=== PATIENT | male | born 1985 | race African-American/Black ===

== ENCOUNTER 2017-11-22 15:59 | Emergency (ER) | payer OTHER ==
[2017-11-22] MEDS: IBUPROFEN 800 MG TAB PO (16:40)
[2017-11-22] MEDS: ACETAMINOPHEN 500 MG TAB PO (16:40)
[2017-11-22] MEDS: DEXAMETHASONE 10 MG/ML 1 ML INJ IM (16:47)
[2017-11-22] MEDS: CEFTRIAXONE 1 GM INJ IM (16:47)
== END 2017-11-22 17:05 | disposition home or self-care (01) ==
LOC: FTE 15:59
DX: J03.90 Acute tonsillitis, unspecified (principal); H66.93 Otitis media, unspecified, bilateral; H60.93 Unspecified otitis externa, bilateral
CPT/HCPCS: 96372; 99284-25

== ENCOUNTER 2018-12-18 01:29 | Observation (INO) | payer OTHER ==
[2018-12-18 02:30] LABS: ADD MAN DIFF? NO
[2018-12-18 02:33] LABS: WHITE BLOOD COUNT 7.3 10^3/ul (4.8-10.8)
[2018-12-18 02:33] LABS: BASOPHILS % 0.4 % (0.0-2.0); EOSINOPHILS # 0.2 10^3/ul (0.0-0.5); EOSINOPHILS % 2.1 % (0.0-7.0); HEMATOCRIT 46.6 % (42.0-52.0); LYMPHOCYTES % 27.5 % (15.0-51.0); MEAN CORPUSCULAR HEMOGLOBIN 30.5 pg (29.0-33.0); MEAN CORPUSCULAR HGB CONC 34.3 g/dl (32.0-37.0); MEAN CORPUSCULAR VOLUME 88.8 fl (82.0-101.0); MEAN PLATELET VOLUME 9.7 fl (7.4-10.4); MONOCYTE # 0.6 10^3/ul (0.3-0.9); MONOCYTES % 8.4 % (0.0-11.0); NEUTROPHIL # 4.5 10^3/ul (1.6-7.5); NEUTROPHILS % 61.3 % (39.0-77.0); PLATELET COUNT 311 10^3/UL (140-415); RED BLOOD COUNT 5.25 10^6/ul (4.70-6.10); RED CELL DISTRIBUTION WIDTH 12.8 % (11.5-14.5)
[2018-12-18 02:39] LABS: INR 0.89; PARTIAL THROMBOPLASTIN TIME 28.1 Sec (23.0-35.0); PROTIME 12.1 Sec (11.9-14.9); PT RATIO 0.9
[2018-12-18] MEDS: morphine 4 MG/ML VIAL IV (02:40)
[2018-12-18] MEDS: ONDANSETRON 4 MG INJ IV (02:43)
[2018-12-18 02:56] LABS: ALANINE AMINOTRANSFERASE 41 IU/L (13-69); ALBUMIN 4.7 g/dl (3.3-4.9); ALKALINE PHOSPHATASE 74 IU/L (42-121); ANION GAP 13 (5-13); ASPARTATE AMINO TRANSFERASE 39 IU/L (15-46); BILIRUBIN,INDIRECT 0.7 mg/dl (0-1.1); BILIRUBIN,TOTAL 0.7 mg/dl (0.2-1.3); BLOOD UREA NITROGEN 19 mg/dl (7-20); CALCIUM 9.7 mg/dl (8.4-10.2); CARBON DIOXIDE 25 mmol/L (21-31); CHLORIDE 103 mmol/L (97-110); CREATININE 0.93 mg/dl (0.61-1.24); Estimated GFR > 60 mL/min (>60); GLUCOSE 105 mg/dl (70-220); POTASSIUM 4.1 mmol/L (3.5-5.1); SODIUM 141 mmol/L (135-144); TOTAL PROTEIN 8.6 g/dl (6.1-8.1)
[2018-12-18 05:20] LABS: TROPONIN-I < 0.012 ng/ml (0.000-0.120)
[2018-12-18] MEDS ORDERED: ACETAMINOPHEN 325 MG TAB PO ×2 (06:00→06:30)
[2018-12-18] MEDS ORDERED: ONDANSETRON 4 MG INJ IV ×2 (06:00→06:30)
[2018-12-18] MEDS: ASPIRIN 81 MG TAB PO (06:05)
[2018-12-18] MEDS: SOD CHLORIDE 0.9% 100 ML (06:08)
[2018-12-18] MEDS: IOHEXOL 300MG/ML 150 ML BTL (06:08)
[2018-12-18] MEDS ORDERED: HYDROCODONE/APAP (5/325) TAB PO (06:30)
[2018-12-18] MEDS ORDERED: LORAZEPAM 2 MG INJ IV (06:30)
[2018-12-18] MEDS ORDERED: hydrALAzine 20 MG INJ IV (06:30)
[2018-12-18] MEDS ORDERED: NITROGLYCERIN (SL) 0.4 MG TAB SL (06:30)
[2018-12-18] MEDS ORDERED: DOCUSATE SODIUM 100 MG CAP PO (06:30)
[2018-12-18] MEDS ORDERED: ALBUTEROL/IPRATROPIUM (NEB) 3 ML AMP HHN (06:30)
[2018-12-18] MEDS ORDERED: MAGNESIUM HYDROXIDE 30ML CUP PO (06:30)
[2018-12-18] MEDS ORDERED: morphine 2 MG INJ IV (06:30)
[2018-12-18] MEDS ORDERED: NACL 0.9% 3 ML SYG IV (06:30)
[2018-12-18 06:41] LABS: FREE T4 (FREE THYROXINE) 0.78 ng/dl (0.79-2.35)
[2018-12-18] MEDS: METOPROLOL (XL) 25 MG TAB PO (08:41)
[2018-12-18] MEDS: ASPIRIN (EC) 325 MG TAB PO (08:41)
[2018-12-18] MEDS: HEPARIN 5,000 UNIT/1 ML VIAL SC (08:43)
[2018-12-18 09:48] LABS: CREATINE KINASE 498 IU/L (23-200)
[2018-12-18 09:58] LABS: CK INDEX 0.6; CK-MB 2.76 ng/ml (0.0-2.4); TROPONIN-I < 0.012 ng/ml (0.000-0.120)
[2018-12-18] MEDS: SOD CHLORIDE 0.45% 1,000 ML IV (10:15)
[2018-12-18] MEDS ORDERED: IOHEXOL 14.3 MG(I)/ML (ADULT) BTL PO (10:30)
[2018-12-18] MEDS: METOCLOPRAMIDE 10 MG INJ IV (11:32)
[2018-12-18] MEDS: PANTOPRAZOLE (EC) 40 MG TAB PO (11:32)
== END 2018-12-18 12:00 | disposition left against medical advice (07) ==
LOC: E/R 01:29 → 6WM 05:56
DX: R07.9 Chest pain, unspecified (principal); R42 Dizziness and giddiness; R94.31 Abnormal electrocardiogram [ECG] [EKG]
CPT/HCPCS: 71045; 71275; 80053; 82550; 82553; 84439; 84484; 85025; 85610; 85730; 93005; 93306; 96374; 96375; 99285-25; G0378